=== PATIENT | male | born 1945 | race Caucasian/White ===

== ENCOUNTER → 2023-03-11 | Outpatient (CLI) | payer MEDICARE ==
--- NOTE | 2023-03-11 18:00 | XR ---
EXAMINATION TYPE: XR chest 2V DATE OF EXAM: 03/11/2023 COMPARISON: None HISTORY: 77-year-old male preoperative assessment, [id number] TECHNIQUE: Frontal and lateral views FINDINGS: The cardiomediastinal silhouette, aorta, and pulmonary vasculature are within normal limits. Hyperinf lation. Some strandy atelectasis in the lower lungs. Otherwise, lungs and pleural spaces are clear. IMPRESSION: Hyperinflation may reflect depth of inspiration or underlying emphysema. Clinically correlate. No acu te process seen.
== END | disposition home or self-care (01) ==
LOC: RADXRYALE 14:34
PROVIDERS: ATTEND Physician Assistant
DX: Z01.811 Encounter for preprocedural respiratory examination (principal); R91.8 Other nonspecific abnormal finding of lung field
CPT/HCPCS: 71046

== ENCOUNTER 2023-09-14 06:04 | Day surgery (SDC) | payer MEDICARE ==
[~2023-09-14 06:04] MED LIST: LACTATED RINGERS 1,000 ML IV SCH
[2023-09-14 06:59] VITALS: RESP 18; TEMP 97.1
[2023-09-14] MEDS ORDERED: GLYCOPYRROLATE 0.2 MG/ML 2 ML VIAL ONE (07:08)
[2023-09-14] MEDS ORDERED: PROPOFOL 10 MG/ML 20 ML VIAL IV ONE (07:08)
[2023-09-14 08:35] LABS: Anisocytosis Slight; HCT 35.8 % (39.0-53.0); HGB 12.3 gm/dL (13.0-17.5); MCH 33.8 pg (25.0-35.0); MCHC 34.2 g/dL (31.0-37.0); MCV 98.6 fL (80.0-100.0); Macrocytosis Slight; Mean Platelet Volume 11.3; Platelet Count 100 k/uL (150-450); RBC 3.63 m/uL (4.30-5.90); RDW 16.4 % (11.5-15.5)
[2023-09-14 08:37] LABS: Reticulocyte % 4.5 % (0.5-2.0)
[2023-09-14 08:46] LABS: Lymphocytes # (M) 2.15 k/uL (1.0-4.8); Monocytes # (M) 0.75 k/uL (0-1.0); Neutrophils % (M) 42 %; Nucleated Red Blood Cells 0 /100 WBC (0-0); Total Cells Counted 100
[2023-09-14 08:49] LABS: Polychromasia Present
[2023-09-14 08:54] VITALS: BP 124/63; PULSE 58
--- NOTE | 2023-09-14 09:27 | OP ---
OPERATIVE REPORT DATE OF SERVICE : PROCEDURES PERFORMED: Bone marrow biopsy with local and general sedation. DESCRIPTION OF PROCEDURE: Following sterilization of the skin with three swabs of Betadine and three swabs of alcohol, sterile drape was placed. 10 mL of 1% local lidocaine was applied to the periosteum. A 0.3 cm incision in the skin was made and then 4-inch Jamshidi needle was advanced to the bone marrow. Three attempts were made with no aspiration obtained. Following repositioning, new area along the posterior superior iliac spine was palpated. This area was sterilized with three swabs of Betadine and three swabs of alcohol along with sterile drape applied and 10 mL of 1% lidocaine applied to the periosteum. A 0.3 cm incision was made. A 4-inch Jamshidi needle was advanced to the bone marrow with 15 mL of aspirate along with a 1.5 cm sample obtained without complications. Mr. Victor tolerated the procedure without complications. Samples will be sent for flow cytometry, cytogenetics, FISH, and NGS for profiling. He returned to the postop area in stable condition. PREOPERATIVE DIAGNOSIS: Bicytopenia. POSTOPERATIVE DIAGNOSIS: Bicytopenia. MMODL / IJN: [id number] / MTDD
== END 2023-09-14 08:53 | disposition home or self-care (01) ==
LOC: OR 06:04
PROVIDERS: ATTEND Internal Medicine
DX: D69.6 Thrombocytopenia, unspecified (principal); I25.10 Atherosclerotic heart disease of native coronary artery without angina pectoris; I25.2 Old myocardial infarction; I10 Essential (primary) hypertension; E78.5 Hyperlipidemia, unspecified; J44.9 Chronic obstructive pulmonary disease, unspecified; E07.9 Disorder of thyroid, unspecified; Z95.5 Presence of coronary angioplasty implant and graft; Z79.890 Hormone replacement therapy; Z79.82 Long term (current) use of aspirin; Z79.899 Other long term (current) drug therapy; Z79.51 Long term (current) use of inhaled steroids
CPT/HCPCS: 85025; 85045; 38222; J2704

== ENCOUNTER → 2023-10-21 | Outpatient (CLI) | payer MEDICARE ==
--- NOTE | 2023-10-24 09:06 | PE ---
EXAMINATION TYPE: PET CT fusion skull to thigh DATE OF EXAM: 10/21/2023 CLINICAL INDICATION:Male, 78 years old with history of C90.00 MYLEOMA; TECHNIQUE: Following the intravenous administration of 10.5 mCi of F-18 FDG, whole body images are performed from the skull base to the midthigh. Images are reviewed on the computer in the coronal, a xial, and sagittal planes. Reconstructed rotating images are created on independent workstation and reviewed on the computer. A non-contrast CT is performed in conjunction with the PET scan. Glucose level 97 mg/dL CT DLP: 1006 mGycm, Automated exposure control for dose reduction was used. COMPARISON: CT None, PET/CT None, FINDINGS: Mediastinal SUV mean is 2.1. Hepatic parenchyma SUV mean is 3.2. SKULL BASE AND NECK: * No suspicious radiotracer activity. * Focal uptake within the left parotid gland max SUV 6.8 measuring 6 mm. CHEST, MEDIASTINUM, AND HILAR REGION: No suspicious radiotracer activity. ABDOMEN AND PELVIS: No suspicious radiotracer activity. MUSCULOSKELETAL STRUCTURES: * Heterogenous uptake throughout the osseous structures. No focal lesions. No suspicious radiotracer activity. * Degeneration changes of the shoulders with uptake bilaterally max SUV on the right 4.8 and on the left 4.7. * Physiologic uptake within the gluteus essence muscles bilaterally. OTHER CT: Atherosclerosis of the intracranial vasculature coronary arteries and diminutive vasculatur e. There is aortoiliac stent graft present. Lumen measuring up to 6.9 cm and left common iliac aneury smal dilation up to 3.9 cm. The prostate gland is enlarged measuring up to 5.2 cm. There is bilateral fat-containing inguinal her nias. Few scattered colonic diverticula. IMPRESSION: 1. No suspicious radiotracer activity. Heterogenous nonfocal uptake within osseous structures. 2. 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
== END | disposition home or self-care (01) ==
LOC: RADPETMAIN 15:15
PROVIDERS: ATTEND Internal Medicine
DX: C90.00 Multiple myeloma not having achieved remission (principal)
CPT/HCPCS: 78815; A9552

== ENCOUNTER 2024-05-19 16:04 | Inpatient (IN) | payer MEDICARE ==
--- NOTE | 2024-05-19 16:46 | ED ---
General Adult HPI - General Chief complaint: Nausea/Vomiting/Diarrhea Stated complaint: Vomiting-Post OP Time Seen by Provider: 05/19/24 16:41 Source: patient Mode of arrival: ambulatory Limitations: no limitations - History of Present Illness Initial comments: Patient is a 78-year-old gentleman past medical history multiple myoloma presenting today for adverse reaction to monoclonal antibody injection, darzalex injection, at the cancer center this morning at 10 AM. First time ever receiving the medication. Approximately 2 PM he began having episodes of emesis, muscle cramping and shortness of breath. He attempted his home inhaler without improvem ent in symptoms. Hx limited by acuity of condition. - Related Data Home Medications Medication Instructions Recorded Confirmed Albuterol Inhaler [Ventolin Hfa 2 puff INHALATION RT-QID PRN 09/09/23 05/19/24 Inhaler] Aspirin [Adult Low Dose Aspirin EC] 81 mg PO DAILY 09/09/23 05/19/24 Atorvastatin [Lipitor] 20 mg PO DAILY 09/09/23 05/19/24 Cholecalciferol [Vitamin D3 (25 50 mcg PO DAILY 09/09/23 05/19/24 Mcg = 1000 Iu)] Fenofibrate Nanocrystallized 145 mg PO DAILY 09/09/23 05/19/24 [Fenofibrate] Levothyroxine Sodium [Synthroid] 75 mcg PO DAILY 09/09/23 05/19/24 Metoprolol Succinate (ER) [Toprol 100 mg PO DAILY 09/09/23 05/19/24 XL] Tamsulosin [Flomax] 0.8 mg PO DAILY 09/09/23 05/19/24 amLODIPine 10 mg PO DAILY 09/09/23 05/19/24 hydroCHLOROthiazide 25 mg PO DAILY 09/09/23 05/19/24 ALPRAZolam [Xanax] 0.25 mg PO Q8H PRN 05/19/24 05/19/24 Budesonide/Formoterol Fumarate 2 puff INHALATION RT-BID 05/19/24 05/19/24 [Symbicort 160-4.5 Mcg Inhaler] Darzalex Faspro(Unknown Dose) 1 dose IV DIRECTED 05/19/24 05/19/24 Lenalidomide [Revlimid] 10 mg PO DIRECTED@0700 05/19/24 05/19/24 Multivitamins, Thera [Multivitamin 1 tab PO DAILY 05/19/24 05/19/24 (formulary)] Ondansetron [Zofran] 4 - 8 mg PO Q4-6H PRN 05/19/24 05/19/24 Allergies Allergy/AdvReac Type Severity Reaction Status Date / Time fosinopril [From Monopril] Allergy Anaphylaxis Verified 05/19/24 19:25 prochlorperazine Allergy CARDIAC, Verified 05/19/24 19:25 [From Compazine] Heart Rate Increased Review of Systems ROS Statement: Those systems with pertinent positive or pertinent negative responses have been documented in the HPI. ROS Other: All systems not noted in ROS Statement are negative. Past Medical History Past Medical History: Cancer, COPD, Hyperlipidemia, Hypertension, Myocardial Infarction (AR), Prostate Disorder, Thyroid Disorder Additional Past Medical History / Comment(s): CURRENT: LOSS OF WEIGHT/FATIGUE. Last Myocardial Infarction Date:: 2003 History of Any Multi-Drug Resistant Organisms: None Reported Past Surgical History: Adenoidectomy, Heart Catheterization, Heart Catheterization With Stent, Hernia Repair, Tonsillectomy Additional Past Surgical History / Comment(s): [facility] HERNIA.2013 AORTA SURGERY Past Anesthesia/Blood Transfusion Reactions: No Reported Reaction Date of Last Stent Placement:: UNKN Past Psychological History: No Psychological Hx Reported Smoking Status: Current every day smoker Past Alcohol Use History: None Reported Past Drug Use History: None Reported General Exam - General Exam Comments Initial Comments: PE: CONSTITUTIONAL: Ill-appearing, tachypneic, in acute distress, uncomfortable appearing SKIN: warm, dry, no jaundice, hives or petechiae EYES: pupils are equally round, extraocular movements intact without nystagmus, clear conjunctiva, non-icteric sclera HENT: normocephalic, atraumatic, moist mucus membranes, oropharynx clear without exudates NECK: full range of motion PULMONARY: Tachypnea, Crackles and wheezes in all lung crawley, no accessory muscle use CARDIOVASCULAR: tachycardic rate, regular rhythm, normal S1 and S2. No appreciated murmurs. Strong radial pulses with intact distal perfusion GASTROINTESTINAL: soft, non-tender, non-distended, no palpable masses, no rebound or guarding LYMPHATICS: no edema in lower extremities MUSCULOSKELETAL: Extremities have no gross deformity, no edema, redness, or swelling NEUROLOGIC: _a/o x 3, GCS 15, normal mentation and speech. Moves all extremities x 4 without motor or sensory deficit PSYCHIATRIC: _normal mood and affect, thought process is clear and linear Limitations: no limitations Course Vital Signs 05/19/24 05/19/24 05/19/24 16:20 17:00 17:07 Temperature 98.7 F Pulse Rate 125 H 115 H 118 H Respiratory 20 14 18 Rate Blood Pressure 124/63 137/76 O2 Sat by Pulse 91 L 96 Oximetry 05/19/24 05/19/24 05/19/24 17:14 18:00 19:15 Temperature Pulse Rate 120 H 113 H 109 H Respiratory 20 16 14 Rate Blood Pressure 100/86 103/52 O2 Sat by Pulse 96 95 Oximetry 05/19/24 05/19/24 05/19/24 19:42 19:50 20:10 Temperature Pulse Rate 101 H 104 H 102 H Respiratory 16 Rate Blood Pressure 111/72 O2 Sat by Pulse 95 Oximetry - Reevaluation(s) Reevaluation #1: 05/19/24 16:[address] Card for assistance with possible causes of patient's current symptoms. Ordering portable chest x-ray, nebulizer treatments, x-ray, respiratory therapist to come to bedside Medical Decision Making - Medical Decision Making Was pt. sent in by a medical professional or institution (, PA, REFERENCE ARCHIVIST, urgent care, hospital, or assisted...) When possible be specific @ -[No] Did you speak to anyone other than the patient for history (EMS, parent, family, police, friend...)? What history was obtained from this source @ -[No] Did you review nursing and triage notes (agree or disagree)? Why? @ -[I reviewed and agree with nursing and triage notes] reviewed triage note, patient complains of nausea and vomiting with difficulty in breathing, had a Darzalex injection this morning history multiple myeloma vital signs on arrival show heart rate 125 bpm, pulse ox 91%, blood pressure 124/63, respiratory rate 20, temperature 98.7 degrees oral Were old charts reviewed (outside hosp., previous admission, EMS record, old EKG, old radiological studies, urgent care reports/EKG's, assisted records)? Report findings @ -[No old charts were reviewed] Differential Diagnosis (chest pain, altered mental status, abdominal pain women, abdominal pain men, vaginal bleeding, weakness, fever, dyspnea, syncope, headache, dizziness, GI bleed, back pain, seizure, CVA, palpatations, mental health, musculoskeletal)? @ -[not applicable] EKG interpreted by me (3pts min.). @ -[As above] X-rays interpreted by me (1pt min.). @ -[None done] CT interpreted by me (1pt min.). @ -[None done] U/S interpreted by me (1pt. min.). @ -[None done] What testing was considered but not performed or refused? (CT, X-rays, U/S, labs)? Why? @ -[None] What meds were considered but not given or refused? Why? @ -[None] Did you discuss the management of the patient with other professionals (professionals i.e. , PA, REFERENCE ARCHIVIST, lab, RT, psych nurse, social services director, rounding and backing machine operator, teacher, compliance review officer, bilingual case manager)? Give summary @ -[No] Was smoking cessation discussed for >3mins.? @ -[No] Was critical care preformed (if so, how long)? @ -[No] Were there social determinants of health that impacted care today? How? (Homelessness, low income, unemployed, alcoholism, drug addiction, transportation, low edu. Level, literacy, decrease access to med. care, shelter, rehab)? @ -[No] Was there de-escalation of care discussed even if they declined (Discuss DNR or withdrawal of care, Hospice)? DNR status @ -[No] What co-morbidities impacted this encounter? (DM, HTN, Smoking, COPD, CAD, Cancer, CVA, ARF, Chemo, Hep., AIDS, mental health diagnosis, sleep apnea, morbid obesity)? @ -[None] Was patient admitted / discharged? Hospital course, mention meds given and route, prescriptions, significant lab abnormalities, going to OR and other pertinent info. @ -[hospital course] Patient seen and assessed upon rooming. Hypoxic on arrival, tachypneic, conversational dyspnea, crackles and wheezes in all lung crawley, tachycardia, abdomen soft and distended with generalized TTP, patient uncomfortable appearing due to descibed muscle spasms, no altered mental status, no hives, no stridor, no hyperactive bowel wounds. Supplemental O2 applied, patient placed on 4L, with improved work of breathing, respiratory called to adminster nebulizer treatment, plan to administer IV lasix, requested 1 V CXR, considered IM epi out of concern for anaphylaxis however patient has hx CAD and given improving symptoms with oxygen supplementation and higher suspicion for infusion reaction, IM epi ordered to bedside if symptoms worsen, but not given. Discussed with Dr. Ruiz, patient's oncologist, suspects mostly infusion type reaction, agrees with holding off on IM epi, agrees with lasix administration, additionally recs steroids. On reassessment after initialy nebulizer treatment, patient's symptoms improving, appears much more comfortable, wheezing somewhat improved, ordered additional duo neb. Patient continued to require O2 NC (with removal of supplemental O2, began to desat to 93% with brief conversation), muscle spasms resolved. Plan for admission for further treatment and observation, patient agreeable with POC. Undiagnosed new problem with uncertain prognosis? @ -[No] Drug Therapy requiring intensive monitoring for toxicity (Heparin, Nitro, Insulin, Cardizem)? @ -[No] Were any procedures done? @ -[No] Diagnosis/symptom? @ -[default] Acute, or Chronic, or Acute on Chronic? @ -[default] Uncomplicated (without systemic symptoms) or Complicated (systemic symptoms)? @ -[default] Side effects of treatment? @ -[No] Exacerbation, Progression, or Severe Exacerbation? @ -[No] Poses a threat to life or bodily function? How? (Chest pain, USA, AR, pneumonia, PE, COPD, DKA, ARF, appy, cholecystitis, CVA, Diverticulitis, Homicidal, Suicidal, threat to staff... and all critical care pts) @ -[No] - Lab Data Result diagrams: 05/19/24 17:08 05/19/24 17:08 Lab Results 05/19/24 05/19/24 05/19/24 Range/Units 17:08 17:08 17:08 WBC 3.4 L (3.8-10.6) k/uL RBC 3.71 L (4.30-5.90) m/uL Hgb 12.2 L (13.0-17.5) gm/dL Hct 37.4 L (39.0-53.0) % MCV 100.7 H (80.0-100.0) fL MCH 32.9 (25.0-35.0) pg MCHC 32.6 (31.0-37.0) g/dL RDW 18.5 H (11.5-15.5) % Plt Count 101 L (150-450) k/uL MPV 10.5 Neutrophils % 83 % Lymphocytes % 8 % Monocytes % 6 % Eosinophils % 1 % Basophils % 1 % Neutrophils # 2.8 (1.3-7.7) k/uL Lymphocytes # 0.3 L (1.0-4.8) k/uL Monocytes # 0.2 (0-1.0) k/uL Eosinophils # 0.0 (0-0.7) k/uL Basophils # 0.0 (0-0.2) k/uL Hypochromasia Slight Poikilocytosis Slight Anisocytosis Slight Macrocytosis Slight PT 11.6 (10.0-12.5) sec INR 1.1 (<1.2) APTT 20.4 L (22.0-30.0) sec Sodium 140 (137-145) mmol/L Potassium 3.5 (3.5-5.1) mmol/L Chloride 101 (98-107) mmol/L Carbon Dioxide 29 (22-30) mmol/L Anion Gap 10 mmol/L BUN 19 (9-20) mg/dL Creatinine 1.32 H (0.66-1.25) mg/dL Est GFR (CKD-EPI)AfAm 60 (>60 ml/min/1.73 sqM) Est GFR (CKD-EPI)NonAf 52 (>60 ml/min/1.73 sqM) Glucose 119 H (74-99) mg/dL Lactic Ac Sepsis Rflx Plasma Lactic Acid Nnamdi (0.7-2.0) mmol/L Calcium 9.7 (8.4-10.2) mg/dL Magnesium 1.4 L (1.6-2.3) mg/dL Total Bilirubin 0.6 (0.2-1.3) mg/dL AST 42 (17-59) U/L ALT 24 (4-49) U/L Alkaline Phosphatase 68 (38-126) U/L Creatine Kinase 66 (55-170) U/L Troponin I (0.000-0.034) ng/mL NT-Pro-B Natriuret Pep 339 pg/mL Total Protein 6.8 (6.3-8.2) g/dL Albumin 4.6 (3.5-5.0) g/dL 05/19/24 05/19/24 05/19/24 Range/Units 17:08 17:08 18:56 WBC (3.8-10.6) k/uL RBC (4.30-5.90) m/uL Hgb (13.0-17.5) gm/dL Hct (39.0-53.0) % MCV (80.0-100.0) fL MCH (25.0-35.0) pg MCHC (31.0-37.0) g/dL RDW (11.5-15.5) % Plt Count (150-450) k/uL MPV Neutrophils % % Lymphocytes % % Monocytes % % Eosinophils % % Basophils % % Neutrophils # (1.3-7.7) k/uL Lymphocytes # (1.0-4.8) k/uL Monocytes # (0-1.0) k/uL Eosinophils # (0-0.7) k/uL Basophils # (0-0.2) k/uL Hypochromasia Poikilocytosis Anisocytosis Macrocytosis PT (10.0-12.5) sec INR (<1.2) APTT (22.0-30.0) sec Sodium (137-145) mmol/L Potassium (3.5-5.1) mmol/L Chloride (98-107) mmol/L Carbon Dioxide (22-30) mmol/L Anion Gap mmol/L BUN (9-20) mg/dL Creatinine (0.66-1.25) mg/dL Est GFR (CKD-EPI)AfAm (>60 ml/min/1.73 sqM) Est GFR (CKD-EPI)NonAf (>60 ml/min/1.73 sqM) Glucose (74-99) mg/dL Lactic Ac Sepsis Rflx Y Plasma Lactic Acid Nnamdi 2.1 H* (0.7-2.0) mmol/L Calcium (8.4-10.2) mg/dL Magnesium (1.6-2.3) mg/dL Total Bilirubin (0.2-1.3) mg/dL AST (17-59) U/L ALT (4-49) U/L Alkaline Phosphatase (38-126) U/L Creatine Kinase (55-170) U/L Troponin I <0.012 (0.000-0.034) ng/mL NT-Pro-B Natriuret Pep pg/mL Total Protein (6.3-8.2) g/dL Albumin (3.5-5.0) g/dL Disposition Disposition: ADMITTED IP TO THIS [facility] Decision Date: 05/19/24 Decision Time: 19:49
[2024-05-19] MEDS: IPRATROPIUM-ALBUTEROL 3 ML NEB INHALATION STA ×2 (17:04→19:41)
[2024-05-19 18:17] LABS: Anisocytosis Slight; Basophils % (A) 1 %; Eosinophils % (A) 1 %; HCT 37.4 % (39.0-53.0); HGB 12.2 gm/dL (13.0-17.5); Hypochromasia Slight; Lymphocytes # (A) 0.3 k/uL (1.0-4.8); Lymphocytes % (A) 8 %; MCH 32.9 pg (25.0-35.0); MCHC 32.6 g/dL (31.0-37.0); MCV 100.7 fL (80.0-100.0); Macrocytosis Slight; Mean Platelet Volume 10.5; Monocytes # (A) 0.2 k/uL (0-1.0); Monocytes % (A) 6 %; Neutrophils # (A) 2.8 k/uL (1.3-7.7); Neutrophils % (A) 83 %; Platelet Count 101 k/uL (150-450); Poikilocytosis Slight; RBC 3.71 m/uL (4.30-5.90); RDW 18.5 % (11.5-15.5); WBC 3.4 k/uL (3.8-10.6)
[2024-05-19] MEDS: FUROSEMIDE 10 MG/ML 2 ML VIAL IV ONE (18:17)
[2024-05-19] MEDS: ONDANSETRON 4 MG/2 ML VIAL IVP STA (18:17)
[2024-05-19] MEDS: methylPREDNISolone SOD SUCCI 125 MG/2 ML VIAL IV STA (18:17)
[2024-05-19 18:22] LABS: ALT 24 U/L (4-49); AST 42 U/L (17-59); African American GFR (CKD) 60 (>60 ml/min/1.73 sqM); Albumin 4.6 g/dL (3.5-5.0); Alkaline Phosphatase 68 U/L (38-126); Anion Gap 10 mmol/L; Blood Urea Nitrogen 19 mg/dL (9-20); Calcium 9.7 mg/dL (8.4-10.2); Carbon Dioxide 29 mmol/L (22-30); Chloride 101 mmol/L (98-107); Creatine Kinase 66 U/L (55-170); Glucose 119 mg/dL (74-99); Magnesium 1.4 mg/dL (1.6-2.3); Non-African American GFR(CKD) 52 (>60 ml/min/1.73 sqM); Potassium 3.5 mmol/L (3.5-5.1); Sodium 140 mmol/L (137-145); Total Bilirubin 0.6 mg/dL (0.2-1.3); Total Protein 6.8 g/dL (6.3-8.2)
[2024-05-19 18:28] LABS: NT-Pro-B-Type Natriuretic Pept 339 pg/mL
[2024-05-19 18:31] LABS: INR 1.1 (<1.2); Partial Thromboplastin Time 20.4 sec (22.0-30.0); Prothrombin Time 11.6 sec (10.0-12.5)
--- NOTE | 2024-05-19 19:17 | XR ---
EXAMINATION TYPE: XR chest 1V portable DATE OF EXAM: 05/19/2024 6:37 PM CLINICAL INDICATION:Male, 78 years old with history of Short of breath; [facility] COMPARISON: Radiograph from 03/11/2023 TECHNIQUE: XR chest 1V portable Frontal view of the chest. FINDINGS: Lungs/Pleura: There is no evidence of pleural effusion, focal consolidation, or pneumothorax. Pulmonary vascularity: Unremarkable. Heart/mediastinum: Cardiomediastinal silhouette is unremarkable. Musculoskeletal: No acute osseous pathology. Other findings: None Lines/Tubes: IMPRESSION: No acute cardiopulmonary disease/process.
[2024-05-19] MEDS: EPINEPHrine - Anaphylaxis Kit (1 mg/mL) IM STA (19:36)
[2024-05-19] MEDS: MAGNESIUM SULFATE-D5W PMX 1 GM in DEXTROSE/WATER 1 100ML.BAG IVPB SCH (20:04)
[2024-05-19] MEDS ORDERED: ONDANSETRON 4 MG/2 ML VIAL IVP PRN (20:17)
[2024-05-19] MEDS ORDERED: HYDROcodone/APAP 5-325MG 1 EACH TAB PO PRN (20:17)
[2024-05-19] MEDS ORDERED: ACETAMINOPHEN TAB 325 MG TAB PO PRN (20:17)
[2024-05-19] MEDS ORDERED: NALOXONE 0.4 MG/ML 1 ML VIAL IV PRN (20:17)
[2024-05-19] MEDS ORDERED: ALPRAZolam 0.25 MG TAB PO PRN (20:20)
[2024-05-19] MEDS: FAMOTIDINE 20 MG TAB PO SCH (20:45)
[2024-05-19] MEDS: TAMSULOSIN 0.4 MG CAP.ER.24H PO SCH (20:45)
[2024-05-19 21:48] VITALS: RESP 18
--- NOTE | 2024-05-19 23:11 | P.HPIM ---
History of Present Illness H&P Date: 05/19/24 Chief Complaint: SOB Patient is a 78-year-old male with a multiple myeloma, COPD not on home oxygen therapy, CAD status post stent in 2002, abdominal aortic aneurysm stent status post stent in 2012, hypertension, hyperlipidemia, BPH presents to the ER with worsening shortness of breath after patient received Darzalex infusion (for the first time) for treatment of multiple myeloma at [facility] this morning. Patient was diagnosed multiple myeloma in August 2023 and is currently under treatment for it. Patient reports that after he got Darzalex in the morning even back home and around 2 PM he felt short of breath. His symptoms were also associated with nausea and multiple episodes nonbloody vomiting along with headaches and spasms in upper and lower extremities. His symptoms lasted for 3 hours. Denies any seizure-like activity with no tongue bite and/or urinary or bowel incontinence. Denies fall and or head trauma. Patient and his were concerned and patient came to ER for further assessment. At the ER, patient received DuoNebs, IV steroid and oxygen therapy which helped alleviate his shortness of breath. At the time of interview, patient is not in acute distress and is feeling much better. Denies shortness of breath, drooling, headaches, lightheadedness, nausea, vomiting, chest pain, abdominal pain, peripheral edema, numbness or weakness or tingling in upper and lower extremities. He does report mild soreness in his thighs bilaterally but no pain. Chest x-ray in the ER shows no evidence of pleural effusion, focal consolidation or pneumothorax. No acute cardiopulmonary disease or process. Vitals: Tmax 98.1 F, heart rate 101, respiration 18, blood pressure 109/65, oxygen saturation 96% on 2 L via nasal cannula. Review of systems: Pertinent positives and negatives as discussed in HPI, a complete review of systems was performed and all other systems are negative. Social history: Tobacco: Currently smoking 1/4 pack/day x 10 years, used to smoke 2 packs/day x 40 years Alcohol: None Recreational drugs: None Travel: None Occupation: Retired Family History: Nonsignificant Physical examination: Vital signs reviewed General: non toxic, no distress, appears at stated age, normal weight Derm: no unusual rashes/lesions, warm Head: atraumatic, normocephalic, symmetric Eyes: EOMI, no lid lag, anicteric sclera, pupils equal round reactive to light ENT: Nose and ears atraumatic Neck: No cervical lymphadenopathy, trachea midline, supple Mouth: no lip lesion, mucus membranes moist Cardiovascular: S1S2 reg, no murmur, positive dorsalis pedis pulse bilateral, no edema Lungs: Bibasilar crackles, no rhonchi, no rales, no accessory muscle use Abdominal: soft, nontender to palpation, no guarding Ext: muscle strength 5 out of 5 in all 4 extremities grossly, no gross muscle atrophy, no contractures, Neuro: CN II-XI grossly intact, no gross focal neuro deficits Psych: Alert, oriented, appropriate affect Assessment/Plan: 78-year-old male with a history of COPD not on home oxygen therapy, CAD status post stent in 2002, abdominal aortic aneurysm stent status post stent in 2012, hypertension, hyperlipidemia, BPH presents to the ER with worsening shortness of breath after patient received Darzalex for treatment of multiple myeloma at [facility] this morning. #Acute respiratory distress syndrome secondary to Darzalex infusion related reaction Chest x-ray in the ER shows no evidence of pleural effusion, focal consolidation or pneumothorax. No acute cardiopulmonary disease or process. Continue with DuoNebs as needed Continue with oxygen therapy 2 L via nasal cannula Resume his home med: Albuterol inhaler 2.5 mg RT 4 times daily as needed, Symbicort 160-4.5 mcg inhaler 2 puffs RT twice daily Consult hematology Dr. 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 daily, fenofibrate 145 mg p.o. daily Hypertension: Resume hydrochlorothiazide 25 mg p.o. daily, amlodipine 10 mg p.o. daily Hypothyroidism: Resume Synthroid 75 mcg p.o. daily BPH: Resume Flomax 0.8 mg p.o. daily CAD status post PCI: Resume aspirin 81 mg p.o. daily, metoprolol 100 mg p.o. daily DVT prophylaxis: Lovenox 40 mg subcu daily The patient is admitted with an anticipated less than 2 midnight stay for evaluation of Acute respiratory distress secondary to Darzalex infusion related reaction CODE STATUS: Full code Discussed with: Patient Anticipated discharge place: Home Past Medical History Past Medical History: Cancer, COPD, Hyperlipidemia, Hypertension, Myocardial Infarction ([place]), Prostate Disorder, Thyroid Disorder Additional Past Medical History / Comment(s): CURRENT: LOSS OF WEIGHT/FATIGUE. Last Myocardial Infarction Date:: 2003 History of Any Multi-Drug Resistant Organisms: None Reported Past Surgical History: Adenoidectomy, Heart Catheterization, Heart Catheterization With Stent, Hernia Repair, Tonsillectomy Additional Past Surgical History / Comment(s): [facility] HERNIA.2013 AORTA SURGERY Past Anesthesia/Blood Transfusion Reactions: No Reported Reaction Date of Last Stent Placement:: UNKN Past Psychological History: No Psychological Hx Reported Smoking Status: Current every day smoker Past Alcohol Use History: None Reported Past Drug Use History: None Reported Medications and Allergies Home Medications Medication Instructions Recorded Confirmed Type Albuterol Inhaler [Ventolin Hfa 2 puff INHALATION RT-QID PRN 09/09/23 05/19/24 History Inhaler] Aspirin [Adult Low Dose Aspirin EC] 81 mg PO DAILY 09/09/23 05/19/24 History Atorvastatin [Lipitor] 20 mg PO DAILY 09/09/23 05/19/24 History Cholecalciferol [Vitamin D3 (25 50 mcg PO DAILY 09/09/23 05/19/24 History Mcg = 1000 Iu)] Fenofibrate Nanocrystallized 145 mg PO DAILY 09/09/23 05/19/24 History [Fenofibrate] Levothyroxine Sodium [Synthroid] 75 mcg PO DAILY 09/09/23 05/19/24 History Metoprolol Succinate (ER) [Toprol 100 mg PO DAILY 09/09/23 05/19/24 History XL] Tamsulosin [Flomax] 0.8 mg PO DAILY 09/09/23 05/19/24 History amLODIPine 10 mg PO DAILY 09/09/23 05/19/24 History hydroCHLOROthiazide 25 mg PO DAILY 09/09/23 05/19/24 History ALPRAZolam [Xanax] 0.25 mg PO Q8H PRN 05/19/24 05/19/24 History Budesonide/Formoterol Fumarate 2 puff INHALATION RT-BID 05/19/24 05/19/24 History [Symbicort 160-4.5 Mcg Inhaler] Darzalex Faspro(Unknown Dose) 1 dose IV DIRECTED 05/19/24 05/19/24 History Lenalidomide [Revlimid] 10 mg PO DIRECTED@0700 05/19/24 05/19/24 History Multivitamins, Thera [Multivitamin 1 tab PO DAILY 05/19/24 05/19/24 History (formulary)] Ondansetron [Zofran] 4 - 8 mg PO Q4-6H PRN 05/19/24 05/19/24 History Allergies Allergy/AdvReac Type Severity Reaction Status Date / Time fosinopril [From Monopril] Allergy Anaphylaxis Verified 05/19/24 19:25 prochlorperazine Allergy CARDIAC, Verified 05/19/24 19:25 [From Compazine] Heart Rate Increased Physical Exam Vitals: Vital Signs Temp Pulse Resp BP Pulse Ox 05/19/24 20:10 102 H 16 111/72 95 05/19/24 19:50 104 H 05/19/24 19:42 101 H 05/19/24 19:15 109 H 14 103/52 95 05/19/24 18:00 113 H 16 100/86 96 05/19/24 17:14 120 H 20 05/19/24 17:07 118 H 18 05/19/24 17:00 115 H 14 137/76 96 05/19/24 16:20 98.7 F 125 H 20 124/63 91 L Intake and Output 05/19/24 05/19/24 05/19/24 06:59 14:59 22:59 Other: Weight 102.058 kg Results CBC & Chem 7: 05/19/24 17:08 05/19/24 17:08 Labs: Abnormal Lab Results - Last 24 Hours (Table) 05/19/24 05/19/24 05/19/24 Range/Units 17:08 17:08 17:08 WBC 3.4 L (3.8-10.6) k/uL RBC 3.71 L (4.30-5.90) m/uL Hgb 12.2 L (13.0-17.5) gm/dL Hct 37.4 L (39.0-53.0) % MCV 100.7 H (80.0-100.0) fL RDW 18.5 H (11.5-15.5) % Plt Count 101 L (150-450) k/uL Lymphocytes # 0.3 L (1.0-4.8) k/uL APTT 20.4 L (22.0-30.0) sec Creatinine 1.32 H (0.66-1.25) mg/dL Glucose 119 H (74-99) mg/dL Plasma Lactic Acid Nnamdi (0.7-2.0) mmol/L Magnesium 1.4 L (1.6-2.3) mg/dL 05/19/24 Range/Units 17:08 WBC (3.8-10.6) k/uL RBC (4.30-5.90) m/uL Hgb (13.0-17.5) gm/dL Hct (39.0-53.0) % MCV (80.0-100.0) fL RDW (11.5-15.5) % Plt Count (150-450) k/uL Lymphocytes # (1.0-4.8) k/uL APTT (22.0-30.0) sec Creatinine (0.66-1.25) mg/dL Glucose (74-99) mg/dL Plasma Lactic Acid Nnamdi 2.1 H* (0.7-2.0) mmol/L Magnesium (1.6-2.3) mg/dL Assessment and Plan Assessment: I have seen and evaluated the patient today. I Discussed the case with the resident and agree with the resident's findings I edited the assessment and plan as necessary as documented in the resident's note.
[2024-05-20] MEDS: LEVOTHYROXINE 75 MCG TAB PO SCH (06:03)
[2024-05-20 08:25] LABS: African American GFR (CKD) 60 (>60 ml/min/1.73 sqM); Anion Gap 9 mmol/L; Blood Urea Nitrogen 21 mg/dL (9-20); Carbon Dioxide 26 mmol/L (22-30); Chloride 102 mmol/L (98-107); Glucose 167 mg/dL (74-99); Magnesium 2.1 mg/dL (1.6-2.3); Non-African American GFR(CKD) 52 (>60 ml/min/1.73 sqM); Sodium 137 mmol/L (137-145)
[2024-05-20] MEDS: SYMBICORT 160-4.5 MCG INHALER INHALATION SCH (09:05)
[2024-05-20] MEDS: ALBUTEROL NEBULIZED 2.5 MG/3 ML INHALATION PRN (09:05)
[2024-05-20] MEDS: ASPIRIN 81 MG PO SCH (09:32)
[2024-05-20] MEDS: hydroCHLOROthiazide 25 MG TAB PO SCH (09:33)
[2024-05-20] MEDS: FENOFIBRATE 160 MG TAB PO SCH (09:33)
[2024-05-20] MEDS: amLODIPine 10 MG TAB PO SCH (09:33)
[2024-05-20] MEDS: ATORVASTATIN 20 MG TAB PO SCH (09:33)
[2024-05-20] MEDS: METOPROLOL SUCCINATE (ER) 100 MG TAB.ER.24H PO SCH (09:33)
[2024-05-20] MEDS: ENOXAPARIN 40 MG/0.4 ML SYRINGE SQ SCH (09:33)
--- NOTE | 2024-05-20 11:24 | P.PN ---
Subjective Progress Note Date: 05/20/24 Subjective: Patient seen and examined at bedside. No acute events overnight. Symptoms have improved Pertinent positives and negatives as discussed above, a complete review of systems was performed and all other systems are negative. Vitals: Signs Reviewed Physical Exam: General: nontoxic, no distress, appears at stated age Derm: warm, dry, intact Head: atraumatic, normocephalic, symmetric Eyes: EOMI, no lid lag, anicteric sclera Mouth: no lip lesion, mucus membranes moist Cardiovascular: S1 S2 reg, no murmur, rubs, or gallops Lungs: CTA bilateral, no rhonchi, no rales, no accessory muscle use Abdominal: soft, non-tender to palpataion, no appreciable organomegaly Extremities: no gross muscle atrophy, no edema, no contractures Neuro: Alert, Oriented, CNII-XII grossly intact, gait normal Psych: well appearing, appropriate affect Data Received Today: Pertinent Labs: CBC pancytopenia due to multiple myeloma, CR 1.32 at baseline, magnesium 2.1 Imaging: No new imaging Assessment and Plan: 78-year-old male with a history of COPD not on home oxygen therapy, CAD status post stent in 2002, abdominal aortic aneurysm stent status post stent in 2012, hypertension, hyperlipidemia, BPH presents to the ER with worsening shortness of breath after patient received Darzalex for treatment of multiple myeloma at [facility] this morning. #Acute respiratory distress 2/2 Darzalex possible seizure vs allergic reaction Chest x-ray in the ER shows no evidence of pleural effusion, focal consolidation or pneumothorax. No acute cardiopulmonary disease or process. Continue with DuoNebs as needed Continue with oxygen therapy 2 L via nasal cannula Resume his home med: Albuterol inhaler 2.5 mg RT 4 times daily as needed, Symbicort 160-4.5 mcg inhaler 2 puffs RT twice daily Consult oncology Dr. Zoila Ruiz for management of multiple myeloma COPD seems to be compensated at this time , not on home oxygen , continue home inhalers , continue to monitor off systemic steroids, reevaluate in the morning , if becomes wheezy and chest tightness again, then consider restarting systemic steroids would recommend discontinuing #Pancytopenia (at baseline) secondary to multiple myeloma WBC 3.4, RBC 3.01, hemoglobin 12.2, hematocrit 37.4, MCV 100.7, platelet 101 No active bleeding Continue monitor CBC #CKD stage III secondary to multiple myeloma Labs at baseline Resolved Hypomagnesemia Lactic acidosis F: KVO E: Replete as needed N: Heart healthy diet A: Ambulatory DVT ppx: [] Code status: Full Anticipated discharge place: Home Anticipated discharge time: Likely today I have seen and evaluated the patient today. Discussed with the resident and agree with the residents subjective and objective as documented in the reside nt's note. The assessment and plan was discussed and outlined as below. Patient reports difficulty taking a deep breath followed by multiple episodes of nausea and vomiting along with bilateral upper extremity tremors and slurred speech/difficulty finding words that started a couple of hours after injection of Darzalex. He reports he was not premedicated with Benadryl and Decadron prior to his injection as recommended. Currently his symptoms have resolved, he reports feeling well besides some weakness. Respiratory distress secondary to Darzalex injection related reaction: Symptoms mostly resolved. Possible seizure related to Darzalex? Regardless, would recommend discontinuing Darzalex completely. Awaiting Oncology recommendations. Pancytopenia secondary to multiple myeloma at baseline CKD stage IIIa secondary to multiple myeloma at baseline Hyperglycemia: Obtain A1c. Resolved: Hypomagnesemia, Lactic acidosis Hopeful plans for discharge home if cleared by Oncology. Objective - Vital Signs Vital signs: Vital Signs Temp 98.0 F 05/20/24 09:26 Pulse 89 05/20/24 09:26 Resp 18 05/20/24 09:26 BP 130/59 05/20/24 09:26 Pulse Ox 92 L 05/20/24 09:26 FiO2 Intake & Output 05/19/24 05/20/24 05/20/24 18:59 06:59 18:59 Weight 102.058 kg 99.9 kg Other: Voiding Method Toilet - Labs CBC & Chem 7: 05/19/24 17:08 05/20/24 07:44 Labs: Abnormal Lab Results - Last 24 Hours (Table) 05/19/24 05/19/24 05/19/24 Range/Units 17:08 17:08 17:08 WBC 3.4 L (3.8-10.6) k/uL RBC 3.71 L (4.30-5.90) m/uL Hgb 12.2 L (13.0-17.5) gm/dL Hct 37.4 L (39.0-53.0) % MCV 100.7 H (80.0-100.0) fL RDW 18.5 H (11.5-15.5) % Plt Count 101 L (150-450) k/uL Lymphocytes # 0.3 L (1.0-4.8) k/uL APTT 20.4 L (22.0-30.0) sec BUN (9-20) mg/dL Creatinine 1.32 H (0.66-1.25) mg/dL Glucose 119 H (74-99) mg/dL Plasma Lactic Acid Nnamdi (0.7-2.0) mmol/L Magnesium 1.4 L (1.6-2.3) mg/dL 05/19/24 05/20/24 Range/Units 17:08 07:44 WBC (3.8-10.6) k/uL RBC (4.30-5.90) m/uL Hgb (13.0-17.5) gm/dL Hct (39.0-53.0) % MCV (80.0-100.0) fL RDW (11.5-15.5) % Plt Count (150-450) k/uL Lymphocytes # (1.0-4.8) k/uL APTT (22.0-30.0) sec BUN 21 H (9-20) mg/dL Creatinine 1.32 H (0.66-1.25) mg/dL Glucose 167 H (74-99) mg/dL Plasma Lactic Acid Nnamdi 2.1 H* (0.7-2.0) mmol/L Magnesium (1.6-2.3) mg/dL
[2024-05-20 12:36] VITALS: BP 130/70; PULSE 76; TEMP 97.6
[2024-05-20 13:45] VITALS: BMI 31.6
--- NOTE | 2024-05-20 14:52 | P.DS ---
Providers Date of admission: 05/19/24 20:17 Discharge Diagnosis: Respiratory distress secondary to Darzalex injection related reaction Pancytopenia secondary to multiple myeloma at baseline CKD stage IIIa secondary to multiple myeloma at baseline Hyperglycemia Hypomagnesia, resolved Lactic acidosis, resolved Hospital Course: Patient is a 78-year-old male with a multiple myeloma, COPD not on home oxygen therapy, CAD status post stent in 2002, abdominal aortic aneurysm stent status post stent in 2012, hypertension, hyperlipidemia, BPH presents to the ER with worsening shortness of breath after patient received Darzalex infusion (for the first time) for treatment of multiple myeloma at [facility] this morning. Patient was diagnosed multiple myeloma in August 2023 and is currently under treatment for it. Patient reports that after he got Darzalex in the morning even back home and around 2 PM he felt short of breath. His symptoms were also associated with nausea and multiple episodes nonbloody vomiting along with headaches and spasms in upper and lower extremities. His symptoms lasted for 3 hours. Denies any seizure-like activity with no tongue bite and/or urinary or bowel incontinence. Denies fall and or head trauma. Patient and his were concerned and patient came to ER for further assessment. At the ER, patient received DuoNebs, IV steroid and oxygen therapy which helped alleviate his shortness of breath. At the time of interview, patient is not in acute distress and is feeling much better. Denies shortness of breath, drooling, headaches, lightheadedness, nausea, vomiting, chest pain, abdominal pain, peripheral edema, numbness or weakness or tingling in upper and lower extremities. He does report mild soreness in his thighs bilaterally but no pain. Chest x-ray in the ER shows no evidence of pleural effusion, focal consolidation or pneumothorax. No acute cardiopulmonary disease or process. Vitals: Tmax 98.1 F, heart rate 101, respiration 18, blood pressure 109/65, oxygen saturation 96% on 2 L via nasal cannula. Patient admitted for further assessment of shortness of breath. Next day patient symptoms resolved he noted some generalized weakness. Took him off his oxygen. Was seen and cleared by oncology. Was told to follow-up on Wednesday with oncologist. He also follow-up with his PCP. He is being discharged home. 05/20/2024: Patient seen and examined at bedside. Says most of his symptoms have resolved. Notes some generalized weakness. Told us he has a appointment scheduled with Dr. Ruiz. Vital signs reviewed and stable. Physical Exam: General: non toxic, no distress, appears at stated age, normal weight Derm: no unusual rashes/lesions, warm Head: atraumatic, normocephalic, symmetric Eyes: EOMI, no lid lag, anicteric sclera, pupils equal round reactive to light ENT: Nose and ears atraumatic Neck: No cervical lymphadenopathy, trachea midline, supple Mouth: no lip lesion, mucus membranes moist Cardiovascular: S1S2 reg, no murmur, positive dorsalis pedis pulse bilateral, no edema Lungs: Lung sounds clear on auscultation, no rhonchi, no rales, no accessory muscle use Abdominal: soft, nontender to palpation, no guarding Ext: muscle strength 5 out of 5 in all 4 extremities grossly, no gross muscle atrophy, no contractures, Neuro: CN II-XI grossly intact, no gross focal neuro deficits Psych: Alert, oriented, appropriate affect A total of 20 minutes of time were spent preparing this complex discharge summary. Patient was discharge on May 20, 2024 at 2:26 PM. Expected date of discharge: 05/20/24 Attending physician: Santino Bhandari MD Consults: 05/19/24 20:17 Consult Physician Routine Consulting Provider: Zoila Ruiz Consult Reason/Comments: Infusion reaction Do you want consulting provider notified?: Yes Primary care physician: [facility] Course: I have seen and evaluated the patient today. Discussed with the resident and agree with the residents subjective and objective as documented in the resident's note. The assessment and plan was discussed and outlined as below. Patient reports difficulty taking a deep breath followed by multiple episodes of nausea and vomiting along with bilateral upper extremity tremors and slurred speech/difficulty finding words that started a couple of hours after injection of Darzalex. He reports he was not premedicated with Benadryl and Decadron prior to his injection as recommended. Currently his symptoms have resolved, he reports feeling well besides some weakness. Cleared for discharge by Oncology. Discharge Diagnosis: Respiratory distress secondary to Darzalex injection related reaction: Symptoms mostly resolved. Possible seizure related to Darzalex? Regardless, would recommend discontinuing Darzalex completely. Pancytopenia secondary to multiple myeloma at baseline CKD stage IIIa secondary to multiple myeloma at baseline Hyperglycemia: Obtain A1c. Resolved: Hypomagnesemia, Lactic acidosis Patient Condition at Discharge: Stable Plan - Discharge Summary Discharge Rx Participant: No New Discharge Prescriptions: Continue Albuterol Inhaler [Ventolin Hfa Inhaler] 2 puff INHALATION RT-QID PRN PRN Reason: Shortness Of Breath Cholecalciferol [Vitamin D3 (25 Mcg = 1000 Iu)] 50 mcg PO DAILY hydroCHLOROthiazide 25 mg PO DAILY Budesonide/Formoterol Fumarate [Symbicort 160-4.5 Mcg Inhaler] 2 puff INHALATION RT-BID Multivitamins, Thera [Multivitamin (formulary)] 1 tab PO DAILY amLODIPine 10 mg PO DAILY Aspirin [Adult Low Dose Aspirin EC] 81 mg PO DAILY Atorvastatin [Lipitor] 20 mg PO DAILY Fenofibrate Nanocrystallized [Fenofibrate] 145 mg PO DAILY Levothyroxine Sodium [Synthroid] 75 mcg PO DAILY Metoprolol Succinate (ER) [Toprol XL] 100 mg PO DAILY Tamsulosin [Flomax] 0.8 mg PO DAILY Darzalex Faspro(Unknown Dose) 1 dose IV DIRECTED ALPRAZolam [Xanax] 0.25 mg PO Q8H PRN PRN Reason: Anxiety Lenalidomide [Revlimid] 10 mg PO DIRECTED@0700 Ondansetron [Zofran] 4 - 8 mg PO Q4-6H PRN PRN Reason: Nausea Discharge Medication List Albuterol Inhaler [Ventolin Hfa Inhaler] 2 puff INHALATION RT-QID PRN 09/09/23 [History] Aspirin [Adult Low Dose Aspirin EC] 81 mg PO DAILY 09/09/23 [History] Atorvastatin [Lipitor] 20 mg PO DAILY 09/09/23 [History] Cholecalciferol [Vitamin D3 (25 Mcg = 1000 Iu)] 50 mcg PO DAILY 09/09/23 [History] Fenofibrate Nanocrystallized [Fenofibrate] 145 mg PO DAILY 09/09/23 [History] Levothyroxine Sodium [Synthroid] 75 mcg PO DAILY 09/09/23 [History] Metoprolol Succinate (ER) [Toprol XL] 100 mg PO DAILY 09/09/23 [History] Tamsulosin [Flomax] 0.8 mg PO DAILY 09/09/23 [History] amLODIPine 10 mg PO DAILY 09/09/23 [History] hydroCHLOROthiazide 25 mg PO DAILY 09/09/23 [History] ALPRAZolam [Xanax] 0.25 mg PO Q8H PRN 05/19/24 [History] Budesonide/Formoterol Fumarate [Symbicort 160-4.5 Mcg Inhaler] 2 puff INHALATION RT-BID 05/19/24 [History] Darzalex Faspro(Unknown Dose) 1 dose IV DIRECTED 05/19/24 [History] Lenalidomide [Revlimid] 10 mg PO DIRECTED@0700 05/19/24 [History] Multivitamins, Thera [Multivitamin (formulary)] 1 tab PO DAILY 05/19/24 [History] Ondansetron [Zofran] 4 - 8 mg PO Q4-6H PRN 05/19/24 [History] Follow up Appointment(s)/Referral(s): Zoila Ruiz MD [STAFF PHYSICIAN] - 1-2 days (please keep appointment you have scheduled ) Discharge Disposition: HOME SELF-CARE
--- NOTE | 2024-05-20 14:59 | P.CONS ---
History of Present Illness - Reason for Consult Consult date: 05/20/24 Multiple Myeloma - Chief Complaint Dyspnea - History of Present Illness Ms. Victor is a 78-year-old gentleman with a past medical history significant for IgG lambda multiple myeloma diagnosed in August 2023 who completed cycle 4 of RVD in January 2024 with poor tolerance and received cycle 1, day 1 of daratumumab on 05/19/2024 with vomiting and shortness of breath. He received daratumumab around 10:00 AM on 05/19/2024 and by mid afternoon, started developing episodes of rigors, emesis, and dyspnea. Vitals on initial presentation were significant for tachycardia with heart rate of 125 along with oxygen saturation of 91% and was placed on 4 L nasal cannula.. CBC noted WBC 3.4 (ANC 2.8), hemoglobin 12.2 (MCV 100.7), platelets 101. CMP noted creatinine of 1.32 (baseline 1.3-1.5) with normal liver function. Creatinine kinase is 66 with NT proBNP 339. Chest x-ray was interpreted as no acute cardiopulmonary process. He received 125 mg IV of methylprednisolone along with Lasix 20 mg IV and Zofran 4 mg IV. He was also given DuoNeb breathing treatments. He was admitted to internal medicine for additional management. Currently, he is feeling back to his baseline prior to admission. He denies any dyspnea, rash, or tongue/lip swelling. Vital signs since admission have been stable and he is resting well on room air. Review of Systems 14 point review of systems conducted pertinent positives and negatives as noted per HPI Past Medical History Past Medical History: Cancer, COPD, Hyperlipidemia, Hypertension, Myocardial Infarction (IA), Prostate Disorder, Thyroid Disorder Additional Past Medical History / Comment(s): CURRENT: LOSS OF WEIGHT/FATIGUE. Last Myocardial Infarction Date:: 2003 History of Any Multi-Drug Resistant Organisms: None Reported Past Surgical History: Adenoidectomy, Heart Catheterization, Heart Catheterization With Stent, Hernia Repair, Tonsillectomy Additional Past Surgical History / Comment(s): [facility] HERNIA.2013 AORTA SURGERY Past Anesthesia/Blood Transfusion Reactions: No Reported Reaction Date of Last Stent Placement:: UNKN Past Psychological History: No Psychological Hx Reported Smoking Status: Current every day smoker Past Alcohol Use History: None Reported Past Drug Use History: None Reported Medications and Allergies Home Medications Medication Instructions Recorded Confirmed Type Albuterol Inhaler [Ventolin Hfa 2 puff INHALATION RT-QID PRN 09/09/23 05/19/24 History Inhaler] Aspirin [Adult Low Dose Aspirin EC] 81 mg PO DAILY 09/09/23 05/19/24 History Atorvastatin [Lipitor] 20 mg PO DAILY 09/09/23 05/19/24 History Cholecalciferol [Vitamin D3 (25 50 mcg PO DAILY 09/09/23 05/19/24 History Mcg = 1000 Iu)] Fenofibrate Nanocrystallized 145 mg PO DAILY 09/09/23 05/19/24 History [Fenofibrate] Levothyroxine Sodium [Synthroid] 75 mcg PO DAILY 09/09/23 05/19/24 History Metoprolol Succinate (ER) [Toprol 100 mg PO DAILY 09/09/23 05/19/24 History XL] Tamsulosin [Flomax] 0.8 mg PO DAILY 09/09/23 05/19/24 History amLODIPine 10 mg PO DAILY 09/09/23 05/19/24 History hydroCHLOROthiazide 25 mg PO DAILY 09/09/23 05/19/24 History ALPRAZolam [Xanax] 0.25 mg PO Q8H PRN 05/19/24 05/19/24 History Budesonide/Formoterol Fumarate 2 puff INHALATION RT-BID 05/19/24 05/19/24 History [Symbicort 160-4.5 Mcg Inhaler] Darzalex Faspro(Unknown Dose) 1 dose IV DIRECTED 05/19/24 05/19/24 History Lenalidomide [Revlimid] 10 mg PO DIRECTED@0700 05/19/24 05/19/24 History Multivitamins, Thera [Multivitamin 1 tab PO DAILY 05/19/24 05/19/24 History (formulary)] Ondansetron [Zofran] 4 - 8 mg PO Q4-6H PRN 05/19/24 05/19/24 History Allergies Allergy/AdvReac Type Severity Reaction Status Date / Time fosinopril [From Monopril] Allergy Anaphylaxis Verified 05/19/24 19:25 prochlorperazine Allergy CARDIAC, Verified 05/19/24 19:25 [From Compazine] Heart Rate Increased Physical Exam Vitals: Vital Signs Temp Pulse Pulse Resp BP BP Pulse Ox 05/20/24 09:26 98.0 F 89 18 130/59 92 L 05/20/24 09:18 88 05/20/24 09:06 86 95 05/20/24 03:20 78 18 105/55 96 05/19/24 23:15 87 18 110/65 97 05/19/24 21:00 98.1 F 101 H 18 109/65 96 05/19/24 20:10 102 H 16 111/72 95 05/19/24 19:50 104 H 05/19/24 19:42 101 H 05/19/24 19:15 109 H 14 103/52 95 05/19/24 18:00 113 H 16 100/86 96 05/19/24 17:14 120 H 20 05/19/24 17:07 118 H 18 05/19/24 17:00 115 H 14 137/76 96 05/19/24 16:20 98.7 F 125 H 20 124/63 91 L Intake and Output 05/19/24 05/20/24 05/20/24 22:59 06:59 14:59 Output Total 0 Balance 0 Output: Gastric Drainage 0 Urine 0 Stool 0 Urine/Stool Mix 0 Emesis 0 Oral Regurgitation 0 Other 0 Other: Voiding Method Toilet Toilet Toilet # Voids 0 # Bowel Movements 0 Weight 102.058 kg 99.9 kg - Constitutional General appearance: cooperative, no acute distress - EENT Eyes: EOMI - Respiratory Respiratory: bilateral: CTA - Cardiovascular Rhythm: regular - Gastrointestinal General gastrointestinal: no distended, normal bowel sounds, soft, no tenderness - Neurologic Neurologic: CNII-XII intact - Musculoskeletal Mild tenderness to palpation of the upper portion of the lower extremities bilaterally Results CBC & Chem 7: 05/19/24 17:08 05/20/24 07:44 Labs: Abnormal Lab Results - Last 24 Hours (Table) 05/19/24 05/19/24 05/19/24 Range/Units 17:08 17:08 17:08 WBC 3.4 L (3.8-10.6) k/uL RBC 3.71 L (4.30-5.90) m/uL Hgb 12.2 L (13.0-17.5) gm/dL Hct 37.4 L (39.0-53.0) % MCV 100.7 H (80.0-100.0) fL RDW 18.5 H (11.5-15.5) % Plt Count 101 L (150-450) k/uL Lymphocytes # 0.3 L (1.0-4.8) k/uL APTT 20.4 L (22.0-30.0) sec BUN (9-20) mg/dL Creatinine 1.32 H (0.66-1.25) mg/dL Glucose 119 H (74-99) mg/dL Plasma Lactic Acid Nnamdi (0.7-2.0) mmol/L Magnesium 1.4 L (1.6-2.3) mg/dL 05/19/24 05/20/24 Range/Units 17:08 07:44 WBC (3.8-10.6) k/uL RBC (4.30-5.90) m/uL Hgb (13.0-17.5) gm/dL Hct (39.0-53.0) % MCV (80.0-100.0) fL RDW (11.5-15.5) % Plt Count (150-450) k/uL Lymphocytes # (1.0-4.8) k/uL APTT (22.0-30.0) sec BUN 21 H (9-20) mg/dL Creatinine 1.32 H (0.66-1.25) mg/dL Glucose 167 H (74-99) mg/dL Plasma Lactic Acid Nnamdi 2.1 H* (0.7-2.0) mmol/L Magnesium (1.6-2.3) mg/dL Assessment and Plan (1) Drug-induced hypersensitivity reaction Current Visit: Yes Status: Acute Code(s): T78.40XA - ALLERGY, UNSPECIFIED, INITIAL ENCOUNTER SNOMED Code(s): 894152330 (2) Multiple myeloma without remission Current Visit: Yes Status: Chronic Code(s): C90.00 - MULTIPLE MYELOMA NOT HAVING ACHIEVED REMISSION SNOMED Code(s): 558323498 Plan: #Hypersensitivity reaction to daratumumab -Presented with dyspnea, nausea, and emesis shortly after administration of cycle 1 of daratumumab on 05/19/2024 -Improved with Lasix and IV steroids on initial presentation -He is currently improved from admission and denies any new signs or symptoms -No additional supportive care measures are required at this time as he is at his baseline prior to admission -He can be discharged from an oncology perspective as the hypersensitivity reaction has resolved #IgG lambda multiple myeloma -Diagnosed in August 2023 -Completed 4 cycles of RVD in January 2024 with persistent fatigue, nausea, and cytopenias -Initiated cycle 1 of Revlimid and daratumumab on 05/19/2024 with hy persensitivity reaction to daratumumab injection -We discussed that we would not rechallenge with daratumumab -Will did discuss switching daratumumab to istuximab, which inhibits CD38 in a different manner than daratumumab #Anemia, thrombocytopenia -Stable, secondary to myelosuppression from treatment for multiple myeloma Zoila Ruiz MD
== END 2024-05-20 15:50 | disposition home or self-care (01) | DRG 189 ==
LOC: EC 16:04 → 3SCARD 20:17
PROVIDERS: ADMIT Internal Medicine; ATTEND Internal Medicine
DX: J80 Acute respiratory distress syndrome (principal); E87.20 Acidosis, unspecified; D61.818 Other pancytopenia; C90.00 Multiple myeloma not having achieved remission; T45.1X5A Adverse effect of antineoplastic and immunosuppressive drugs, initial encounter; F17.200 Nicotine dependence, unspecified, uncomplicated; N40.0 Benign prostatic hyperplasia without lower urinary tract symptoms; I12.9 Hypertensive chronic kidney disease with stage 1 through stage 4 chronic kidney disease, or unspecified chronic kidney disease; R73.9 Hyperglycemia, unspecified; I25.10 Atherosclerotic heart disease of native coronary artery without angina pectoris; I25.2 Old myocardial infarction; E83.42 Hypomagnesemia; E78.5 Hyperlipidemia, unspecified; J44.9 Chronic obstructive pulmonary disease, unspecified; N18.31 Chronic kidney disease, stage 3a; Z79.51 Long term (current) use of inhaled steroids; Z79.82 Long term (current) use of aspirin; Z79.890 Hormone replacement therapy; Z79.899 Other long term (current) drug therapy; Z95.5 Presence of coronary angioplasty implant and graft
CPT/HCPCS: 36415; 71045; 80048; 80053; 82550; 83605; 83735; 83880; 84484; 85025; 85610; 85730; 93005; 94640; 94760; 96365; 96375; 99285